=== PATIENT | male | born 1985 | race Hispanic/Latino ===

== ENCOUNTER 2017-01-05 19:27 | Emergency (ER) | payer BC ==
[2017-01-05 20:00] VITALS: TEMP 98.1
[2017-01-05] MEDS ORDERED: TDAP Vaccine 0.5 mL Syr IM ONE (20:23)
--- NOTE | 2017-01-05 20:23 | ED PDOC ---
Arrival/HPI - General Chief Complaint: Abnormal Skin Integrity Time Seen by Provider: 01/05/17 20:23 Historian: Patient - History of Present Illness Narrative History of Present Illness (Text): 01/05/17 20:10 This 31 yo male presents to this ED c/o left anterior knee laceration x 3 hours. Patient stated [place] airport, he tripped with his own luggage, causing to fall and hitting knee against to "the escalator teeth". Denies head injury, loc, dizziness, syncope, or abnormal gait. Denies back pain, hip pain, neck pain, weakness, paresthesias. Time/Duration: 1-3 hours Context: Other (airport) Past Medical History - Provider Review Nursing Documentation Reviewed: Yes - Psychiatric Hx Substance Use: No Family/Social History - Physician Review Nursing Documentation Reviewed: Yes Family/Social History: Other (non-contributory) Smoking Status: n Hx Alcohol Use: No Hx Substance Use: No Allergies/Home Meds Allergies/Adverse Reactions: Allergies No Known Allergies Allergy (Verified 01/05/17 20:00) Review of Systems - Review of Systems Constitutional: Normal. absent: Fatigue, Weight Change, Fevers Eyes: Normal ENT: Normal Respiratory: Normal. absent: SOB, Cough, Sputum Cardiovascular: Normal. absent: Chest Pain Gastrointestinal: Normal. absent: Abdominal Pain, Nausea, Vomiting Genitourinary Male: Normal. absent: Hematuria Musculoskeletal: Other (knee laceration) Skin: Laceration Neurological: Normal. absent: Headache, Dizziness, Focal Weakness, Gait Changes , Speech Changes, Facial Droop, Disequilibrium Endocrine: Normal Hemo/Lymphatic: Normal Psychiatric: Normal Physical Exam Vital Signs Temp Pulse Resp BP Pulse Ox 01/05/17 19:57 98.1 F 85 18 125/66 99 Temperature: Afebrile Blood Pressure: Normal Pulse: Regular Respiratory Rate: Normal Appearance: Positive for: Well-Appearing, Non-Toxic, Comfortable Pain Distress: None Mental Status: Positive for: Alert and Oriented X 3 - Systems Exam Head: Present: Atraumatic, Normocephalic, Other (no raccoon sign. no vega sign) Pupils: Present: PERRL. No: Non-Reactive Extroacular Muscles: Present: EOMI Conjunctiva: Present: Normal Ears: Present: Normal, Other (no hemotympanum) Mouth: Present: Moist Mucous Membranes Pharnyx: Present: Normal Nose (External): Present: Atraumatic Nose (Internal): Present: Normal Inspection Back: Present: Normal Inspection. No: CVA Tenderness, Midline Tenderness, Paraspinal Tenderness Upper Extremity: Present: Normal Inspection, Normal ROM, NORMAL PULSES, Neurovascularly Intact, Capillary Refill < 2s. No: Cyanosis, Edema Lower Extremity: Present: NORMAL PULSES, Normal ROM, Neurovascularly Intact, Capillary Refill < 2 s, Other ((+) linear skin abrasion anterior left knee. No laceration). No: Edema, CALF TENDERNESS, Diane's Sign, Tenderness, Swelling, Erythema Neurological: Present: GCS=15, CN II-XII Intact, Speech Normal, Motor Func Grossly Intact, Normal Sensory Function, Normal Cerebellar Funct, Gait Normal, Memory Normal Skin: Present: Warm, Dry, Normal Color, Abrasion. No: Rashes Psychiatric: Present: Alert, Oriented x 3, Normal Insight, Normal Concentration Medical Decision Making ED Course and Treatment: 01/05/17 20:37 Re-evaluation. Patient feels better. Discussed results and plan with patient who expresses understanding. All questions answered and there is agreement with the plan to discharge home with instructions. Patient stable for discharge. Return if symptoms persist or worsen. Patient was recommended to clean wound with soap and water daily. Return to emergency if symptoms worsen. Physical exam was unremarkable except for skin abrasion. no bony tenderness on knee, hips or back on palpation Re-evaluation Time: 20:37 Reassessment Condition: Re-examined, Improved - Medication Orders Current Medication Orders: Discontinued Medications Tetanus/Reduced Diphtheria/Acell Pertussis (Boostrix Vaccine Inj) 0.5 ml IM .ONCE ONE Stop: 01/05/17 20:24 Disposition/Present on Arrival - Present on Arrival Any Indicators Present on Arrival: No History of DVT/PE: No History of Uncontrolled Diabetes: No Urinary Catheter: No History of Decub. Ulcer: No History Surgical Site Infection Following: None - Disposition Have Diagnosis and Disposition been Completed?: Yes Diagnosis: Skin abrasion, Fall Disposition: HOME/ ROUTINE Disposition Time: 20:39 Patient Plan: Discharge Patient Problems: Current Active Problems Problem Status Onset Fall Acute Skin abrasion Acute Condition: GOOD Discharge Instructions (ExitCare): Abrasion (ED) Additional Instructions: Call private doctor for follow up visit in 1-2 days. Clean wound with soap and water daily. Take medication as instruction. Return to emergency if symptoms worsen. Prescriptions: Cephalexin [cephalexin] 500 mg PO TID #15 cap Ibuprofen [Motrin] 600 mg PO Q8 PRN #20 tab PRN Reason: Pain, Severe (8-10) Forms: [facility] (Russian)
[2017-01-05 21:08] VITALS: BP 114/60; PULSE 57; RESP 16; O2SAT 94
== END 2017-01-05 21:08 | disposition home or self-care (01) ==
LOC: ED 19:27
DX: S80.212A Abrasion, left knee, initial encounter (principal); W01.118A Fall on same level from slipping, tripping and stumbling with subsequent striking against other sharp object, initial encounter; Y93.89 Activity, other specified; Y92.520 Airport as the place of occurrence of the external cause; Z23 Encounter for immunization